=== PATIENT | female | born 1985 | race Two or more races ===

== ENCOUNTER 2019-08-13 10:43 | Outpatient (CLI) | payer OTHER | END 2019-08-13 10:44 | disposition home or self-care (01) | LOC: SONOGRAMA 10:43 | DX: E04.1 Nontoxic single thyroid nodule (principal) ==

== ENCOUNTER 2021-06-08 09:03 | Day surgery (SDC) | payer OTHER ==
[2021-06-08] MEDS ORDERED: PEPCID20 MG PO (10:26)
== END 2021-06-08 11:45 | disposition home or self-care (01) ==
LOC: AMB-ENDOS 09:03
PROVIDERS: ATTEND Surgery
DX: K44.9 Diaphragmatic hernia without obstruction or gangrene (principal)

== ENCOUNTER 2021-08-18 16:09 | Emergency (ER) | payer OTHER ==
[~2021-08-18] VITALS: Ht 167.6 cm; Wt 113.4 kg
[~2021-08-18 16:09] MED LIST: PEPCID20 MG PO
[2021-08-18] MEDS ORDERED: HYZAAR 100-251 EACH (16:47)
== END 2021-08-18 20:12 | disposition home or self-care (01) ==
LOC: ER 16:09
DX: E86.0 Dehydration (principal); K52.9 Noninfective gastroenteritis and colitis, unspecified